=== PATIENT | male | born 1980 | race Two or more races ===

== ENCOUNTER 2019-10-26 13:07 | Emergency (ER) | payer OTHER ==
[~2019-10-26] VITALS: Ht 170.2 cm; Wt 71.2 kg
--- NOTE | 2019-10-26 13:19 | NUR ---
PT CAME INTO THE ED C/O R SIDED ABDOMINAL PAIN 04/21 WC STARTED YESTERDAY. PT AAOX4, VSS, BREATHING EVEN AND UNLABORED ON ROOM AIR W/ NAD NOTED. -NVD
--- NOTE | 2019-10-26 13:19 | NUR ---
RENE FAGAN AT BEDSIDE FOR EVAL
[2019-10-26] MEDS ORDERED: KETOROLAC TROMETHAMINE INJ 30 MG/ML VIAL IV ONE (13:30)
[2019-10-26] MEDS ORDERED: IV NS 0.9% 1,000 ML BAG IV ONE (13:30)
[2019-10-26] MEDS ORDERED: ONDANSETRON HCL/PF 4 MG/2 ML VIAL IVP ONE (13:30)
[2019-10-26] MEDS ORDERED: ONDANSETRON HCL/PF 4 MG/2 ML VIAL ONE (13:32)
[2019-10-26] MEDS ORDERED: KETOROLAC TROMETHAMINE INJ 30 MG/ML VIAL ONE (13:32)
[2019-10-26 13:35] LABS: BASOPHILS # (AUTO) 0.1 /CMM (0.0-0.2); BASOPHILS % (AUTO) 0.6 % (0.0-2.0); EOSINOPHILS % (AUTO) 3.2 % (0.0-6.0); HEMATOCRIT 44 % (39-51); HEMOGLOBIN 14.2 g/dL (13.5-17.5); LYMPHOCYTES # (AUTO) 2.1 /CMM (0.8-4.8); LYMPHOCYTES % (AUTO) 20.5 % (20.0-44.0); MEAN CORPUSCULAR HGB CONC 32 g/dl (31.0-36.0); MEAN CORPUSCULAR VOLUME 81 fL (80-96); MONOCYTES # (AUTO) 0.8 /CMM (0.1-1.30); MONOCYTES % (AUTO) 8.4 % (2.0-12.0); NEUTROPHILS # (AUTO) 6.8 /CMM (1.8-8.9); NEUTROPHILS % (AUTO) 67.3 % (43.0-81.0); PLATELET COUNT (AUTO) 262 /CMM (150-450); RED BLOOD CELL COUNT(AUTO) 5.37 MIL/uL (4.5-6.0)
[2019-10-26 13:45] LABS: CALCIUM, SERUM 8.8 mg/dL (8.5-10.1); CREATININE 0.9 mg/dL (0.6-1.3); POTASSIUM 3.7 mmol/L (3.5-5.1)
[2019-10-26 13:51] LABS: ALBUMIN 3.8 g/dL (3.4-5.0); BILIRUBIN,DIRECT 0.1 mg/dL (0.0-0.2); BILIRUBIN,TOTAL 0.3 mg/dL (0.2-1.0); TOTAL PROTEIN, SERUM 7.4 g/dL (6.4-8.2)
[2019-10-26 14:23] LABS: APPEARANCE,URINE Clear (CLEAR); BILIRUBIN,URINE Negative (NEGATIVE); BLOOD, URINE Trace-intact Ery/uL (NEGATIVE); COLOR,URINE Yellow (YELLOW); KETONES,URINE Negative (NEGATIVE); LEUKOCYTE ESTERASE ,URINE Negative (NEGATIVE); NITRITE, URINE Negative (NEGATIVE); PROTEIN,URINE Negative (NEGATIVE); UGLUCOSE Negative (NEGATIVE); UROBILINOGEN,URINE 0.2 EU/dL (0.2)
[2019-10-26 14:27] LABS: BACTERIA,URINE Rare /HPF (None Seen); CALCIUM OXALATE CRYSTALS,UR Few /HPF (None Seen); RBC,URINE 0-2 /HPF (0-2); SQUAMOUS EPITHELIAL CELL,UR Few /HPF (None Seen); WBC,URINE 0-2 /HPF (0-3)
--- NOTE | 2019-10-26 14:41 | NUR ---
PT TAKEN TO CT
--- NOTE | 2019-10-26 15:05 | NUR ---
PT BROUGHT BACK FROM CT
[2019-10-26] MEDS ORDERED: PIPERACILLIN /TAZOBACTAM 3.375 G in IV D5W 50 ML IV ONE (15:30)
[2019-10-26] MEDS ORDERED: PIPERACILLIN /TAZOBACTAM 3.375 G VIAL IV ONE (15:30)
--- NOTE | 2019-10-26 16:06 | NUR ---
PT IS CAPITATED / [facility].
--- NOTE | 2019-10-26 16:06 | NUR ---
SPOKE WITH TOP PRECIPITATOR OPERATOR HELPER JIMBO. CALL BACK NO . [phone]
--- NOTE | 2019-10-26 17:12 | NUR ---
TRANSFER INFO: PT WILL GO TO [facility] ACCEPTED BY DR ANSARI, DIRECT ADMIT TO ROOM 306-B, RN FOR REPORT [phone]. AMBULANCE ETA TO FOLLOW.
--- NOTE | 2019-10-26 17:22 | NUR ---
REPORT GIVEN TO JAIRO DONOHUE FROM [facility].
--- NOTE | 2019-10-26 18:05 | NUR ---
[facility] ETA 1934
--- NOTE | 2019-10-26 19:08 | NUR ---
REPORT GIVEN TO JAIRO THOMAS FOR [facility]
--- NOTE | 2019-10-26 19:46 | NUR ---
[facility] ETA 1 HR
--- NOTE | 2019-10-26 20:57 | NUR ---
[facility] UN[facility] [address] AT BEDSIDE FOR PT TRANSFER TO [facility]. REPORT GIVEN
--- NOTE | 2019-10-26 20:59 | NUR ---
JADEN RN AT [facility] NOTIFIED THAT PT IS ENROUTE
[2019-10-26 21:01] VITALS: BP 118/77
== END 2019-10-26 21:03 | disposition short-term general hospital (02) ==
LOC: ER 13:11
DX: K35.890 Other acute appendicitis without perforation or gangrene (principal)
CPT/HCPCS: 36415; 74176; 80048; 80076; 81001; 83690; 85025; 87040 ×2; 96365; 96375; 99285; J1885; J2405; J2543; J7030; J7060; 81000-TC

== ENCOUNTER 2020-07-12 10:16 | Emergency (ER) | payer OTHER ==
[~2020-07-12] VITALS: Ht 170.2 cm; Wt 70.8 kg
--- NOTE | 2020-07-12 10:31 | NUR ---
PT AMBULATORY TO ER BED 13 C/O R FLANK PAIN FOR THE PAST 3-4 DAYS. PT DENIES DYSURIA AND HEMATURIA. PT ALSO STATES FAMILY HX OF KIDNEY STONES STABLE VITALS. NAD NOTED. AWAITING MD LAU.
--- NOTE | 2020-07-12 10:35 | NUR ---
DR ADAMES AT BEDSIDE FOR EVAL.
[2020-07-12] MEDS ORDERED: IBUPROFEN 600 MG TABLET PO ONE ×2 (10:41→11:00)
[2020-07-12] MEDS ORDERED: ACETAMINOPHEN ES 500 MG TABLET ONE (10:41)
--- NOTE | 2020-07-12 10:45 | NUR ---
IV LINE STARTED BLOOD DRAWN AND SENT TO LAB.
[2020-07-12 10:46] LABS: APPEARANCE,URINE Clear (CLEAR); BILIRUBIN,URINE Negative (NEGATIVE); BLOOD, URINE Trace-lysed Ery/uL (NEGATIVE); COLOR,URINE Yellow (YELLOW); KETONES,URINE Negative (NEGATIVE); LEUKOCYTE ESTERASE ,URINE Negative (NEGATIVE); NITRITE, URINE Negative (NEGATIVE); PROTEIN,URINE Negative (NEGATIVE); UGLUCOSE Negative (NEGATIVE); UROBILINOGEN,URINE 0.2 EU/dL (0.2)
[2020-07-12 10:53] LABS: BASOPHILS % (AUTO) 0.7 % (0.0-2.0); EOSINOPHILS % (AUTO) 0.5 % (0.0-6.0); HEMATOCRIT 44 % (39-51); HEMOGLOBIN 14.1 g/dL (13.5-17.5); LYMPHOCYTES # (AUTO) 0.9 /CMM (0.8-4.8); LYMPHOCYTES % (AUTO) 14.8 % (20.0-44.0); MEAN CORPUSCULAR HGB CONC 32 g/dl (31.0-36.0); MEAN CORPUSCULAR VOLUME 83 fL (80-96); MONOCYTES # (AUTO) 0.5 /CMM (0.1-1.30); MONOCYTES % (AUTO) 7.5 % (2.0-12.0); NEUTROPHILS # (AUTO) 4.8 /CMM (1.8-8.9); NEUTROPHILS % (AUTO) 76.5 % (43.0-81.0); PLATELET COUNT (AUTO) 257 /CMM (150-450); RED BLOOD CELL COUNT(AUTO) 5.23 MIL/uL (4.5-6.0); WHITE BLOOD COUNT (AUTO) 6.2 K/uL (4.3-11.0)
[2020-07-12 10:59] LABS: CALCIUM, SERUM 9.1 mg/dL (8.5-10.1); CREATININE 0.9 mg/dL (0.6-1.3); POTASSIUM 3.7 mmol/L (3.5-5.1)
[2020-07-12] MEDS ORDERED: ACETAMINOPHEN ES 500 MG TABLET PO ONE (11:00)
[2020-07-12 11:02] LABS: BACTERIA,URINE None seen /HPF (None Seen); WBC,URINE 0-2 /HPF (0-3)
[2020-07-12 11:03] LABS: SQUAMOUS EPITHELIAL CELL,UR Few /HPF (None Seen)
[2020-07-12 11:05] LABS: ALBUMIN 4.5 g/dL (3.4-5.0); BILIRUBIN,DIRECT 0.2 mg/dL (0.0-0.2); BILIRUBIN,TOTAL 0.8 mg/dL (0.2-1.0)
--- NOTE | 2020-07-12 11:18 | NUR ---
PT TO RADIOLOGY FOR ABDOMINAL CT SCAN VIA [facility] [place].
--- NOTE | 2020-07-12 12:43 | NUR ---
Patient discharged to home in stable condition. Written and verbal after care instructions given. Patient verbalizes understanding of instruction.IV removed. Catheter intact and site benign. Pressure and 4x4 applied to site. No bleeding noted.
[2020-07-12 12:45] VITALS: BP 134/92
== END 2020-07-12 12:45 | disposition home or self-care (01) ==
LOC: ER 10:20
DX: R31.9 Hematuria, unspecified (principal); M54.9 Dorsalgia, unspecified
CPT/HCPCS: 36415; 80048-TC; 80076-TC; 81000-TC; 83690-TC; 85025-TC; 87086-TC

== ENCOUNTER 2021-07-19 11:24 | Emergency (ER) | payer OTHER ==
[~2021-07-19] VITALS: Ht 170.2 cm; Wt 74.4 kg
--- NOTE | 2021-07-19 11:41 | NUR ---
TO ER BED 4, C/O BACK PAIN FOR 3 WEEKS, WORSE TODAY AT 05/21, A&OX4, BREATHING EVEN AND UNLABORED.
[2021-07-19] MEDS ORDERED: KETOROLAC TROMETHAMINE INJ 30 MG/ML VIAL ONE (11:49)
[2021-07-19] MEDS ORDERED: CYCLOBENZAPRINE 10 MG TABLET ONE (11:49)
[2021-07-19] MEDS ORDERED: KETOROLAC TROMETHAMINE INJ 30 MG/ML VIAL IM ONE (12:00)
[2021-07-19] MEDS ORDERED: CYCLOBENZAPRINE 10 MG TABLET PO ONE (12:00)
[2021-07-19 12:25] LABS: BASOPHILS # (AUTO) 0.1 K/uL (0.0-0.2); BASOPHILS % (AUTO) 0.8 % (0.0-2.0); EOSINOPHILS % (AUTO) 1.4 % (0.0-6.0); HEMATOCRIT 44 % (39-51); HEMOGLOBIN 14.3 g/dL (13.5-17.5); LYMPHOCYTES # (AUTO) 1.8 K/uL (0.8-4.8); LYMPHOCYTES % (AUTO) 20.4 % (20.0-44.0); MEAN CORPUSCULAR HGB CONC 33 g/dl (31.0-36.0); MEAN CORPUSCULAR VOLUME 81 fL (80-96); MONOCYTES # (AUTO) 0.5 K/uL (0.1-1.30); MONOCYTES % (AUTO) 6.3 % (2.0-12.0); NEUTROPHILS # (AUTO) 6.1 K/uL (1.8-8.9); NEUTROPHILS % (AUTO) 71.1 % (43.0-81.0); PLATELET COUNT (AUTO) 283 K/uL (150-450); RED BLOOD CELL COUNT(AUTO) 5.41 MIL/uL (4.5-6.0); WHITE BLOOD COUNT (AUTO) 8.6 K/uL (4.3-11.0)
--- NOTE | 2021-07-19 12:28 | NUR ---
urine collected and sent to lab
[2021-07-19 12:36] LABS: BILIRUBIN,URINE Negative (NEGATIVE); COLOR,URINE LIGHT YELLOW (YELLOW); LEUKOCYTE ESTERASE ,URINE Negative (NEGATIVE); NITRITE, URINE Negative (NEGATIVE); PROTEIN,URINE Negative (NEGATIVE); UGLUCOSE Negative (NEGATIVE); UROBILINOGEN,URINE 0.2 EU/dL (0.2)
[2021-07-19 12:42] LABS: ALBUMIN 4.3 g/dL (3.4-5.0); BILIRUBIN,DIRECT 0.2 mg/dL (0.0-0.2); BILIRUBIN,TOTAL 0.7 mg/dL (0.2-1.0); CREATININE 0.9 mg/dL (0.6-1.3); POTASSIUM 3.7 mmol/L (3.5-5.1); TOTAL PROTEIN, SERUM 7.7 g/dL (6.4-8.2)
[2021-07-19 12:52] LABS: BACTERIA,URINE Rare /HPF (None Seen); RBC,URINE 0-2 /HPF (0-2); WBC,URINE NONE SEEN /HPF (0-3)
[2021-07-19 12:53] LABS: SQUAMOUS EPITHELIAL CELL,UR Rare /HPF (None Seen)
[2021-07-19] MEDS ORDERED: IBUP-1957 PO (13:37)
[2021-07-19] MEDS ORDERED: CYCL5TAB PO (13:37)
[2021-07-19 13:44] VITALS: BP 124/73
== END 2021-07-19 13:44 | disposition home or self-care (01) ==
LOC: ER 11:26
DX: M62.830 Muscle spasm of back (principal); Z79.899 Other long term (current) drug therapy
CPT/HCPCS: 36415; 74176; 80048; 80076; 81001; 83690; 85025; 96372; 99284; J1885

== ENCOUNTER 2021-12-05 10:20 | Emergency (ER) | payer OTHER ==
[~2021-12-05] VITALS: Ht 170.2 cm; Wt 75.7 kg
[~2021-12-05 10:20] MED LIST: CYCL5TAB PO; IBUP-1957 PO
[2021-12-05 10:26] VITALS: BP 135/88
[2021-12-05] MEDS ORDERED: P-EP-92 PO (11:39)
== END 2021-12-05 12:10 | disposition home or self-care (01) ==
LOC: ER 10:21
DX: F32.9 Major depressive disorder, single episode, unspecified (principal); R05.9 Cough, unspecified; Z79.899 Other long term (current) drug therapy
CPT/HCPCS: 71045-TC

== ENCOUNTER 2022-10-30 12:31 | Emergency (ER) | payer OTHER ==
[~2022-10-30] VITALS: Ht 170.2 cm; Wt 71.2 kg
[~2022-10-30 12:31] MED LIST changes: +P-EP-92 PO
[2022-10-30 12:49] VITALS: BP 131/78
[2022-10-30] MEDS ORDERED: AMOX-430 PO (13:10)
--- NOTE | 2022-10-30 13:18 | NUR ---
RAPID FLU AND COVID ANTIGEN SWAB DONE AND SENT TO LAB
--- NOTE | 2022-10-30 15:38 | NUR ---
Patient discharged to home in stable condition. Written and verbal after care instructions given. Patient verbalizes understanding of instruction.
== END 2022-10-30 15:39 | disposition home or self-care (01) ==
LOC: ER 12:34
DX: H66.43 Suppurative otitis media, unspecified, bilateral (principal); Z20.822 Contact with and (suspected) exposure to COVID-19
CPT/HCPCS: 99285; 71045; 87426; 93005; 87804; C9803

== ENCOUNTER 2023-10-13 07:13 | Emergency (ER) | payer OTHER ==
[~2023-10-13] VITALS: Ht 170.2 cm; Wt 73.0 kg
[~2023-10-13 07:13] MED LIST changes: +AMOX-430 PO
[2023-10-13] MEDS ORDERED: FLUORESCEIN SODIUM OPHTH 1 EA STRIP ONE ×2 (07:47→07:51)
[2023-10-13] MEDS ORDERED: FLUORESCEIN SODIUM OPHTH 1 EA STRIP OP ONE (08:00)
[2023-10-13 08:18] VITALS: BP 124/61; TEMP 98.4; O2SAT 100
== END 2023-10-13 08:18 | disposition home or self-care (01) ==
LOC: ER 07:13
DX: H57.8A3 Foreign body sensation, bilateral eyes (principal)